=== PATIENT | female | born 1995 | race American Indian/Alaskan Native ===

== ENCOUNTER 2018-08-11 19:58 | Emergency (ER) | payer OTHER ==
--- NOTE | 2018-08-11 20:15 | Emergency Department Report ---
Blank Doc - Documentation Documentation: This is a 23-year-old female that presents with high blood sugar. Stated had sugar of about 600 at home. Stated has some thirst with dry mouth. Stated has been out of metformin a few days ago. This initial assessment/diagnostic orders/clinical plan/treatment(s) is/are subject to change based on patient's health status, clinical progression and re- assessment by fellow clinical providers in the ED. Further treatment and workup at subsequent clinical providers discretion. Patient/guardians urged not to elope from the ED as their condition may be serious if not clinically assessed and managed. Initial orders include: 1- Patient sent to MAIN ED for further evaluation and treatment 2- labs 3- UA
[2018-08-11 20:37] LABS: Basophils # (Auto) 0.1 K/mm3 (0.0-0.1); Basophils % (Auto) 1.1 % (0.0-1.8); Eosinophils # (Auto) 0.2 K/mm3 (0.0-0.4); Eosinophils % (Auto) 2.3 % (0.0-4.3); Hematocrit 40.6 % (30.3-42.9); Hemoglobin 14.2 gm/dl (10.1-14.3); Lymphocytes # (Auto) 3.3 K/mm3 (1.2-5.4); Lymphocytes % (Auto) 39.8 % (13.4-35.0); Mean Corpuscular HGB Conc 35 % (30-34); Mean Corpuscular Volume 85 fl (79-97); Monocytes # (Auto) 0.9 K/mm3 (0.0-0.8); Monocytes % (Auto) 10.3 % (0.0-7.3); Platelet Count 260 K/mm3 (140-440); Red Blood Count 4.76 M/mm3 (3.65-5.03)
[2018-08-11 20:53] LABS: Alanine Aminotransferase 35 units/L (7-56); Albumin 4.2 g/dL (3.9-5); BUN/Creatinine Ratio 8; Bilirubin,Direct < 0.2 mg/dL (0-0.2); Blood Urea Nitrogen 6 mg/dL (7-17); Calcium 9.7 mg/dL (8.4-10.2); Hemolysis Index 17
[2018-08-11 21:02] LABS: Bilirubin,Urine NEG (Negative); Blood,Urine NEG (Negative); Color,Urine Straw (Yellow); Protein,Urine <15 mg/dL mg/dL (Negative); Urobilinogen,Urine < 2.0 mg/dL (<2.0)
[2018-08-11] MEDS ORDERED: NACL 0.9% 1000 ML 1,000 ML IV ONE (23:16)
--- NOTE | 2018-08-11 23:22 | Emergency Department Report ---
HPI - General Chief Complaint: Hyperglycemia Time Seen by Provider: 08/11/18 20:13 - HPI HPI: Room 6 The patient is a 23-year-old female presenting with a chief complaint of hyperglycemia. The patient has a history of diabetes and states she has been in termittently compliant with her metformin. The patient states she stopped taking it a couple of days ago secondary to it causing an upset stomach. Patient states yesterday she felt her blood glucose to be 600. Patient states she's had increased thirst and urination as well as a dry mouth. Patient admits to nausea but denies vomiting or fever Location: [See above] Duration: [See above] Quality: [See above] Severity: [See above] Modifying factors: [see above] Context: [see above] Mode of transportation: [not driving] ED Past Medical Hx - Past Medical History Hx Hypertension: Yes Hx Diabetes: Yes Additional medical history: Morbid Obesity - Surgical History Past Surgical History?: Yes Additional Surgical History: Gastric Sleeve, herniorrhaphy - Family History Family history: no significant - Social History Smoking Status: Never Smoker Substance Use Type: None (denies illicit drug use), Alcohol (rarely) - Medications Home Medications: Home Medications Medication Instructions Recorded Confirmed Last Taken Type glipiZIDE [Glucotrol Xl] 2.5 mg PO QDAY #30 tab.er.24 08/12/18 Unknown Rx ED Review of Systems ROS: Stated complaint: HIGH BLOOD SUGAR 600/FATIGUE Other details as noted in HPI Constitutional: denies: fever Eyes: denies: eye pain ENT: denies: throat pain Respiratory: no symptoms reported Cardiovascular: denies: chest pain Endocrine: increased thirst, increased urine Gastrointestinal: nausea. denies: vomiting Genitourinary: frequency Musculoskeletal: denies: back pain Neurological: denies: headache Physical Exam - Physical Exam Vital Signs: Vital Signs 08/11/18 20:13 Temperature 98.9 F Pulse Rate 108 H Respiratory 20 Rate Blood Pressure 180/106 O2 Sat by Pulse 100 Oximetry Physical Exam: GENERAL: The patient is well-developed well-nourished female lying on stretcher not appear to be in acute distress. [] HEENT: Normocephalic. Atraumatic. Extraocular motions are intact. Patient has moist mucous membranes. NECK: Supple. Trachea midline CHEST/LUNGS: Clear to auscultation. There is no respiratory distress noted. HEART/CARDIOVASCULAR: Regular. There is tachycardia. There is no gallop rub or murmur. ABDOMEN: Abdomen is soft, nontender. Patient has normal bowel sounds. There is no abdominal distention. SKIN: There is no rash. There is no edema. There is no diaphoresis. NEURO: The patient is awake, alert, and oriented. The patient is cooperative. The patient has normal speech MUSCULOSKELETAL: There is no evidence of acute injury. ED Course Vital Signs 08/11/18 20:13 Temperature 98.9 F Pulse Rate 108 H Respiratory 20 Rate Blood Pressure 180/106 O2 Sat by Pulse 100 Oximetry ED Medical Decision Making - Lab Data Result diagrams: 08/11/18 20:24 08/11/18 20:24 Laboratory Tests 08/11/18 08/11/18 08/11/18 20:24 20:24 20:24 WBC 8.3 RBC 4.76 Hgb 14.2 Hct 40.6 MCV 85 MCH 30 MCHC 35 H RDW 12.0 L Plt Count 260 Lymph % (Auto) 39.8 H [place] % (Auto) 10.3 H Eos % (Auto) 2.3 Baso % (Auto) 1.1 Lymph # 3.3 [place] # 0.9 H Eos # 0.2 Baso # 0.1 Seg Neutrophils % 46.5 Seg Neutrophils # 3.9 VBG pH 7.399 Sodium 134 L Potassium 3.5 L Chloride 92.6 L Carbon Dioxide 25 Anion Gap 20 BUN 6 L Creatinine 0.8 Estimated GFR > 60 BUN/Creatinine Ratio 8 Glucose 461 H POC Glucose Calcium 9.7 Total Bilirubin 0.50 Direct Bilirubin < 0.2 Indirect Bilirubin 0.3 AST 47 H ALT 35 Alkaline Phosphatase 79 Total Creatine Kinase 442 H Total Protein 7.3 Albumin 4.2 Albumin/Globulin Ratio 1.4 Lipase 41 Urine Color Urine Turbidity Urine pH Ur Specific [place] Urine Protein Urine Glucose (UA) Urine Ketones Urine Blood Urine Nitrite Urine Bilirubin Urine Urobilinogen Ur Leukocyte Esterase Urine WBC (Auto) Urine RBC (Auto) U Epithel Cells (Auto) 08/11/18 08/11/18 20:25 20:39 WBC RBC Hgb Hct MCV MCH MCHC RDW Plt Count Lymph % (Auto) [place] % (Auto) Eos % (Auto) Baso % (Auto) Lymph # [place] # Eos # Baso # Seg Neutrophils % Seg Neutrophils # VBG pH Sodium Potassium Chloride Carbon Dioxide Anion Gap BUN Creatinine Estimated GFR BUN/Creatinine Ratio Glucose POC Glucose 364 H Calcium Total Bilirubin Direct Bilirubin Indirect Bilirubin AST ALT Alkaline Phosphatase Total Creatine Kinase Total Protein Albumin Albumin/Globulin Ratio Lipase Urine Color Straw Urine Turbidity Clear Urine pH 6.0 Ur Specific [place] 1.035 H Urine Protein <15 mg/dl Urine Glucose (UA) >=500 Urine Ketones Neg Urine Blood Neg Urine Nitrite Neg Urine Bilirubin Neg Urine Urobilinogen < 2.0 Ur Leukocyte Esterase Neg Urine WBC (Auto) 2.0 Urine RBC (Auto) 3.0 U Epithel Cells (Auto) 1.0 - Differential Diagnosis DKA, hyperglycemia Critical care attestation.: If time is entered above; I have spent that time in minutes in the direct care of this critically ill patient, excluding procedure time. ED Disposition Clinical Impression: Hyperglycemia Disposition: [id number]-01 TO HOME OR SELFCARE Is pt being admited?: No Does the pt Need Aspirin: No Condition: Stable Instructions: Diabetes Mellitus Type 2 in Adults (ED), Managing Diabetes During Sick Days (ED) Additional Instructions: Return to the emergency department immediately should you develop worsening symptoms, fever, inability to tolerate food or liquid or any other concerns. Prescriptions: glipiZIDE [Glucotrol Xl] 2.5 mg PO QDAY #30 tab.er.24 Referrals: MALCOLM GARCIA MD [Primary Care Provider] - [facility] Time of Disposition: 01:08
[2018-08-11] MEDS ORDERED: HumuLIN R IV ONE (23:28)
[2018-08-12 01:03] VITALS: BP 137/81
== END 2018-08-12 01:20 | disposition home or self-care (01) ==
LOC: ED 19:58
DX: E11.65 Type 2 diabetes mellitus with hyperglycemia (principal); I10 Essential (primary) hypertension; E66.01 Morbid (severe) obesity due to excess calories; Z79.84 Long term (current) use of oral hypoglycemic drugs
CPT/HCPCS: 36415; 80048; 80076; 81001; 82550; 82805; 82962; 83690; 85025; 96361; 96374; 99283; J7030; J1815